=== PATIENT | female | born 1935 | race Caucasian/White ===

== ENCOUNTER → 2025-02-06 16:00 | Outpatient (REF) | payer OTHER, SELFPAY | LOC: RCS 16:00 | PROVIDERS: ATTENDING PHYSICIAN Internal Medicine Cardiovascular Disease; FAMILY PHYSICIAN Family Medicine | DX: I10 Essential (primary) hypertension (principal); Q25.3 Supravalvular aortic stenosis; I05.9 Rheumatic mitral valve disease, unspecified | CPT/HCPCS: 93306 ==